=== PATIENT | male | born 1940 | race Caucasian/White ===

== ENCOUNTER 2018-03-05 04:33 | Inpatient (IN) | payer MEDICARE ==
[~2018-03-05] VITALS: Ht 152.4 cm; Wt 87.0 kg
[2018-03-05] VITALS (10 sets, daily range): BP systolic 99–121; BP diastolic 49–59
[~2018-03-05 04:33] MED LIST: ADVAIR DISK2 IN; ANTIVERT50 MG PO; B-122500 MCG PO; CETIRIZINE10 MG PO; CO Q-10300 MG PO; ENDUR-ACIN500 MG PO; FISH OIL1200 M1 PO; FOLIC ACID1 MG PO; LASIX 40 MG40 MG/TAB PO; LIPITOR10 MG PO; LOPRESSOR25 MG PO; LORTAB 5/3255 MG PO; OMEPRAZOLE20 MG PO; QUINAPRIL10 MG PO; RANITIDINE150 M1 PO; RHEUMATREX2.5 M1 PO; VITAMIN C500 M1 PO; VITAMIN D32000 UNIT PO; VITAMIN E400 UNIT PO; ZINC50 M1 PO; [UNRECOGNIZED DRUG - OTHER] PO
[2018-03-05 05:27] LABS: HEMATOCRIT 32.3 % (39.0-50.0); HEMOGLOBIN 10.8 g/dl (14.0-18.0); IMMATURE GRANULOCYTES 1.1 % (0.0-1.0); MEAN CORPUSCULAR HGB 34.1 pG CALC (26.0-32.0); MEAN CORPUSCULAR HGB CONC 33.4 g/L CALC (32.0-36.0); NEUT# 14.35 thou/uL (1.82-7.42); RED BLOOD COUNT 3.17 mill/uL (4.70-6.10); RED CELL DISTRI WIDTH 14.9 % (11.5-15.5)
[2018-03-05 05:28] LABS: MEAN CELL VOLUME 101.9 fL CALC (80.0-100.0)
[2018-03-05 05:39] LABS: ALBUMIN 3.6 g/dL (3.2-5.0); BILIRUBIN, TOTAL 0.4 mg/dL (0.0-1.4); CREATININE 1.7 mg/dL (0.7-1.3); POTASSIUM 4.6 mmol/l (3.5-5.1); TOTAL PROTEIN 6.2 g/dL (6.3-8.2)
[2018-03-05 06:11] LABS: INTERNATIONAL NORMALIZED RATIO 1.4 RATIO (0.7-1.3); PROTHROMBIN TIME 16.2 SECONDS (9.0-12.5)
[2018-03-05 06:12] LABS: ACT PARTIAL THROMBO TIME 41.3 SECONDS (20.0-32.5)
[2018-03-05] MEDS ORDERED: MECLIZINE25 MG PO (06:53)
[2018-03-05] MEDS ORDERED: METAMUCIL0.52 G1 PO (06:55)
[2018-03-05] MEDS ORDERED: K-DUR/KLOR-CON20 MEQ PO (06:57)
[2018-03-05] MEDS ORDERED: XARELTO10 MG PO (06:58)
[2018-03-05] MEDS ORDERED: AMIODARONE200 MG PO (06:59)
[2018-03-05] MEDS ORDERED: LEVOTHYROXIN75 MCG PO (07:00)
[2018-03-05] MEDS ORDERED: SPIRONOLACTONE25 MG PO (07:01)
[2018-03-05 12:09] LABS: URINE BILIRUBIN - DIPSTICK NEGATIVE (NEGATIVE); URINE BLOOD DIPSTICK NEGATIVE (NEGATIVE); URINE COLOR YELLOW; URINE GLUCOSE - DIPSTICK NEGATIVE (NEGATIVE); URINE KETONE NEGATIVE (NEGATIVE); URINE LEUK ESTERASE NEGATIVE (Negative); URINE NITRITE - DIPSTICK NEGATIVE (Negative); URINE PH 5.5 (4.5-8.0); URINE PROTEIN - DIPSTICK NEGATIVE (NEG-TRACE); URINE SPECIFIC GRAVITY 1.025; URINE UROBILINOGEN - DIPSTICK 0.2 E.U./dL (0.2)
[2018-03-05] MEDS ORDERED: ADLT ASA LOW81 MG PO (12:39)
[2018-03-05 12:55] LABS: URINE CLARITY CLEAR
== END 2018-03-05 12:38 | DRG 280 ==
LOC: ED 04:33 → ED-I 05:30 → ED 06:50 → MS2 06:51 → ICU 07:20
PROVIDERS: Emergency Medicine; ADMIT Internal Medicine; ATTEND Internal Medicine
DX: I21.4 Non-ST elevation (NSTEMI) myocardial infarction (principal); J18.9 Pneumonia, unspecified organism; J96.10 Chronic respiratory failure, unspecified whether with hypoxia or hypercapnia; I13.0 Hypertensive heart and chronic kidney disease with heart failure and stage 1 through stage 4 chronic kidney disease, or unspecified chronic kidney disease; N17.9 Acute kidney failure, unspecified; I50.22 Chronic systolic (congestive) heart failure; I48.2 Chronic atrial fibrillation; J44.0 Chronic obstructive pulmonary disease with (acute) lower respiratory infection; J44.1 Chronic obstructive pulmonary disease with (acute) exacerbation; N18.3 Chronic kidney disease, stage 3 (moderate); Z99.81 Dependence on supplemental oxygen; I25.10 Atherosclerotic heart disease of native coronary artery without angina pectoris; I25.5 Ischemic cardiomyopathy; E03.9 Hypothyroidism, unspecified; E66.9 Obesity, unspecified; G47.33 Obstructive sleep apnea (adult) (pediatric); D63.8 Anemia in other chronic diseases classified elsewhere; I25.2 Old myocardial infarction; Z95.810 Presence of automatic (implantable) cardiac defibrillator; Z95.5 Presence of coronary angioplasty implant and graft; Z79.01 Long term (current) use of anticoagulants; Z87.891 Personal history of nicotine dependence; Z87.01 Personal history of pneumonia (recurrent)

== ENCOUNTER 2018-04-03 11:43 | Emergency (ER) | payer MEDICARE ==
[~2018-04-03] VITALS: Ht 174 cm; Wt 86.0 kg
[~2018-04-03 11:43] MED LIST changes: +ADLT ASA LOW81 MG PO; +AMIODARONE200 MG PO; +K-DUR/KLOR-CON20 MEQ PO; +LEVOTHYROXIN75 MCG PO; +MECLIZINE25 MG PO; +METAMUCIL0.52 G1 PO; +SPIRONOLACTONE25 MG PO; +XARELTO10 MG PO
[2018-04-03 12:29] LABS: HEMATOCRIT 29.5 % (39.0-50.0); HEMOGLOBIN 9.5 g/dl (14.0-18.0); IMMATURE GRANULOCYTES 0.7 % (0.0-1.0); MEAN CELL VOLUME 102.4 fL CALC (80.0-100.0); MEAN CORPUSCULAR HGB CONC 32.2 g/L CALC (32.0-36.0); NEUT# 4.79 thou/uL (1.82-7.42); RED BLOOD COUNT 2.88 mill/uL (4.70-6.10); RED CELL DISTRI WIDTH 14.9 % (11.5-15.5)
[2018-04-03 12:39] LABS: ANION GAP 11 (6-22 (CALC)); BUN 16 mg/dL (8-23); BUN/CREATININE RATIO 12 (12-20 (CALC)); CARBON DIOXIDE 29 mmol/l (22-30); CHLORIDE 102 mmol/l (95-108); CREATININE 1.3 mg/dL (0.7-1.3); GFR 54 ML/MIN (>=60 (CALC)); GFR FOR AFR.AMER. > 60 ML/MIN (>=60 (CALC)); SODIUM 139 mmol/l (137-146)
[2018-04-03 12:40] LABS: POTASSIUM 3.4 mmol/l (3.5-5.1)
[2018-04-03 13:24] LABS: INTERNATIONAL NORMALIZED RATIO 1.5 RATIO (0.7-1.3); PROTHROMBIN TIME 16.7 SECONDS (9.0-12.5)
[2018-04-03] MEDS ORDERED: [UNRECOGNIZED DRUG - OTHER] PO (14:13)
[2018-04-03 15:36] VITALS: BP 115/58
== END 2018-04-03 15:36 | disposition short-term general hospital (02) ==
LOC: ED 11:43
PROVIDERS: Family Medicine
DX: I47.2 Ventricular tachycardia (principal); I25.10 Atherosclerotic heart disease of native coronary artery without angina pectoris; I11.0 Hypertensive heart disease with heart failure; I50.9 Heart failure, unspecified; I48.91 Unspecified atrial fibrillation; E03.9 Hypothyroidism, unspecified; J44.9 Chronic obstructive pulmonary disease, unspecified; Z95.1 Presence of aortocoronary bypass graft; Z95.5 Presence of coronary angioplasty implant and graft; Z95.810 Presence of automatic (implantable) cardiac defibrillator
CPT/HCPCS: J0282

== ENCOUNTER 2018-10-21 13:12 | Inpatient (IN) | payer MEDICARE ==
[~2018-10-21] VITALS: Ht 172.7 cm; Wt 84.6 kg
[~2018-10-21 13:12] MED LIST changes: +[UNRECOGNIZED DRUG - OTHER] PO
[2018-10-21 16:02] VITALS: BP 112/67
--- NOTE | 2018-10-21 16:05 | NUR ---
[place] [facility] [place] VOLUNTEER @1600. PT AMBULATED FROM TO BED W/ STEADY GAIT. VS DONE. ASSESSMENT COMPLETE. PT A/O X3. SPEECH IS CLEAR. PRODUCTIVE COUGH NOTED. PT HAS A PACEMAKER. RESP EVEN AND UNLABORED. LUNG SOUNDS COARSE. O2@3L ON PT. PT HAS EXERTIONAL SOB. STRONG RADIAL AND PEDAL PULSES. BOWEL SOUNDS ACTIVE X4. PT DENIES ANY PAIN OR NEEDS. CALL LIGHT IN REACH. WILL CONTINUE TO MONITOR.
[2018-10-21 18:47] LABS: HEMATOCRIT 27.6 % (39.0-50.0); HEMOGLOBIN 8.4 g/dl (14.0-18.0); IMMATURE GRANULOCYTES 0.6 % (0.0-5.0); MEAN CORPUSCULAR HGB 28.5 pG CALC (26.0-32.0); MEAN CORPUSCULAR HGB CONC 30.4 g/L CALC (32.0-36.0); NEUT# 10.35 thou/uL (1.82-7.42); RED BLOOD COUNT 2.95 mill/uL (4.70-6.10); RED CELL DISTRI WIDTH 20.5 % (11.5-15.5)
[2018-10-21 18:49] LABS: MEAN CELL VOLUME 93.6 fL CALC (80.0-100.0)
--- NOTE | 2018-10-21 18:50 | NUR ---
NEW IV START BY TAYA GRAY. #22 LW SL. FLUSHED AND PATENT. SITE HEALTHY.
[2018-10-21 18:59] LABS: ALBUMIN 3.7 g/dL (3.2-5.0); BILIRUBIN, TOTAL 1.5 mg/dL (0.0-1.4); CREATININE 1.6 mg/dL (0.7-1.3); TOTAL PROTEIN 6.2 g/dL (6.3-8.2)
[2018-10-21 19:11] LABS: POTASSIUM 4.4 mmol/l (3.5-5.1)
[2018-10-21 19:40] VITALS: BP 116/55
--- NOTE | 2018-10-21 21:05 | NUR ---
PT MEDICATED ORDERS PROVIDE, LUNG SOUNDS ARE DIMINIISHED, ABD DIST/SOFT/NON-TENDER, PT REPORTS STOOL TODAY TO BE NORMAL, DENIES DIFFICULTY URINATING. NO NOTED EDEMA, SKIN AND NEURO'S ARE INTACT. PT ENCOURAGED TO CALL IF ANY NEEDS ARISE.
--- NOTE | 2018-10-21 22:45 | NUR ---
PT ASSISTED IN SETTING UP CPAP MACHINE. PT LEFT W/CPAP ON AND LIGHTS OFF. DENIES ANY OTHER NEEDS AT THIS TIME. CALL LIGHT AT SIDE.
[2018-10-22 00:25] VITALS: BP 122/66
--- NOTE | 2018-10-22 02:40 | NUR ---
PT APPEARS TO BE SLEEPING AT THIS TIME. NO S/O DISTRESS NOTED, CALL LIGHT AT BEDSIDE. CPAP ON.
[2018-10-22 04:30] VITALS: BP 109/54
[2018-10-22 06:01] LABS: HEMATOCRIT 25.9 % (39.0-50.0); HEMOGLOBIN 8.1 g/dl (14.0-18.0); IMMATURE GRANULOCYTES 0.7 % (0.0-5.0); MEAN CELL VOLUME 93.2 fL CALC (80.0-100.0); MEAN CORPUSCULAR HGB 29.1 pG CALC (26.0-32.0); MEAN CORPUSCULAR HGB CONC 31.3 g/L CALC (32.0-36.0); NEUT# 7.13 thou/uL (1.82-7.42); RED BLOOD COUNT 2.78 mill/uL (4.70-6.10); RED CELL DISTRI WIDTH 20.1 % (11.5-15.5)
--- NOTE | 2018-10-22 06:05 | NUR ---
PT MEDICATED ORDERS PROVIDE. NO S/O DISTRESS NOTED. PT WAS AWAKE STATING HE DIDN'T SLEEP VERY WELL. CPAP ON AND CALL LIGHT IN HAND, LIGHTS AND TV ON.
[2018-10-22 06:12] LABS: ALBUMIN 3.4 g/dL (3.2-5.0); BILIRUBIN, TOTAL 1.4 mg/dL (0.0-1.4); CREATININE 1.5 mg/dL (0.7-1.3); MAGNESIUM 2.4 mg/dL (1.6-2.3); POTASSIUM 4.8 mmol/l (3.5-5.1); TOTAL PROTEIN 5.7 g/dL (6.3-8.2)
[2018-10-22 08:02] VITALS: BP 100/47
--- NOTE | 2018-10-22 08:03 | NUR ---
PT LAYING IN BED AWAKE, WATCHING TV; A/O X3; RESP EVEN AND UNLABORED, 02@3L NC; PULSES STRONG; PACED 60 ON MONITOR; ABD SOFT AND DISTENDED; LAST BM 10/22; PRODUCTIVE COUGH NOTED; LUNGS SOUND WHEEZING; NO EDEMA NOTED; #22LW, FLUSHED FLREELY; NO EDEMA OR REDNESS NOTED TO SITE; DENIES PAIN; CALL JON AND URINAL IN REACH; SAFETY PRECAUTION REINFORCE;
--- NOTE | 2018-10-22 08:24 | NUR ---
I SPOKE WITH LESLIE FROM DR. CARA YIN OFFICE @2550. DR. KUHN WAS CONSULTED AND CAME TO THE FLOOR @6014. #[phone]
[2018-10-22 11:19] VITALS: BP 112/59
[2018-10-22] MEDS ORDERED: METAMUCIL0.52 G1 PO (11:36)
[2018-10-22] MEDS ORDERED: D 50005000 UNIT PO (11:38)
[2018-10-22] MEDS ORDERED: SG ASA LOW81 M1 PO (11:40)
[2018-10-22] MEDS ORDERED: KLOR-CON M2020 MEQ PO (11:41)
[2018-10-22] MEDS ORDERED: METOLAZONE5 MG PO (11:45)
[2018-10-22] MEDS ORDERED: MIDODRINE10 MG PO (11:47)
[2018-10-22] MEDS ORDERED: MIRALAX3350 NF PO (11:49)
[2018-10-22] MEDS ORDERED: VENTOLIN HFA PO (11:51)
--- NOTE | 2018-10-22 11:52 | NUR ---
PT SITTING UP IN BED WATCHING TV WITH HIS ; RESP EVEN AND UNLABORED; [address]; PT QUESTION HIS HOME MED, WILL TALK TO BONG JONES; PT COMPLAIN OF NO PAIN; MEDICATED PER EMAR; CALL JON IN REACH; WILL CONTINUE TO MONITOR.
--- NOTE | 2018-10-22 14:15 | NUR ---
PT GOING DOWN FOR CT VIA W/C ACCOMPANIED BY A VOLUNTEER; 02@3L NC; VINCENT PASS
--- NOTE | 2018-10-22 14:35 | NUR ---
PT RETURN FROM CT VIA W/C ACCOMPANIED BY A VOLUNTEER; O2@3L NC; RESP EVEN AND UNLABORED; LINEN CHANGE DONE; COMPANY AT BEDSIDE; CALL JON AND URINAL IN REACH.
[2018-10-22 15:15] VITALS: BP 108/49
--- NOTE | 2018-10-22 15:17 | NUR ---
THE WOUND VAC WAS CANCELLED AT 1430. WE ARE GOING TO USE WOUND VAC #[id number]. THE WOUND VAC #[id number] WAS CANCELLED.
--- NOTE | 2018-10-22 16:21 | NUR ---
PT LAYING IN BED WITH HOB ELEVATED,, WATCHING TV; PT WORKING ON HIS PHONE; [address]; PRODUCTIVE COUGH NOTED; THICK WHITE SPUTUM; IV SITE REMAINS HEALTHY, FREE OF EDEMA; PT AMB IN ROOM AND TO THE RESTROOM. SAFETY PRECAUTION IN PLACE; CALL JON IN REACH.
--- NOTE | 2018-10-22 19:00 | NUR ---
PT IS IN HIGH FOWLERS POSITION IN BED, NO S/O DISTRESS, PT DENIES ANY NEEDS, BEDSIDE REPORT RECEIVED FROM DAY NURSE. CALL LIGHT AT SIDE.
[2018-10-22 19:06] VITALS: BP 113/57
--- NOTE | 2018-10-22 20:24 | NUR ---
PT ASSESSED, LUNG SOUNDS ARE CLEAR/DIMINISHED, ABD DISTENDED SOFT/NON-TENDER, SKIN INTACT, NO NOTED EDEMA, LOCX4, DENIES SOB EXCEPT ON EXERTION/N/V OR CHEST PAIN. PT MEDICATED ORDERS PROVIDE. CALL LIGHT IN HAND.
--- NOTE | 2018-10-23 00:01 | NUR ---
pt medicated as orders provide. pt provided fresh ice water. denies any other needs. call light in hand, pt watching tv w/lights on low.
[2018-10-23 00:13] VITALS: BP 121/52
--- NOTE | 2018-10-23 02:49 | NUR ---
pt called to report that he felt like he was having difficult getting enough oxygen. o2 sats 99% on 02nc @3L. respiratory called and pt assisted in repositioning for optimum breathing. respiratory in w/pt at this time. pt denies chest pain, no s/o labored breathing or distress.
--- NOTE | 2018-10-23 03:05 | NUR ---
RESPIRATORY TREATMENT COMPLETED, PT REPORTS FEELING RELIEF. CALL LIGHT IS AT SIDE AND PT ENCOURAGED TO CALL IF HE HAS ANY FURTHER DIFFICULTY OR OTHER NEEDS ARISE. NO S/O DISTRESS AT THIS TIME.
[2018-10-23 04:15] VITALS: BP 127/61
--- NOTE | 2018-10-23 04:25 | NUR ---
pt was sleeping soundly when we entered the room, awoke to our voices. v/s assessed, pt denies any other needs.
--- NOTE | 2018-10-23 05:52 | NUR ---
PT MEDICATED ORDERS PROVIDE W/IV ANTIOBITIC THERAPY AND EARLY AM MEDS. PT REPORTS FEELING SLIGHTLY BETTER THAN OVERNIGHT, REPORTED COUGHING UP SPUTUM/VISUALIZED IN CUP APPEARING WHITE AND THICK SPUTUM. PT DENIES ANY OTHER NEEDS.
--- NOTE | 2018-10-23 07:00 | NUR ---
PT REPORT RECIEVED FROM TAYA HERNANDEZ. PT SITTING IN BED WATCHING TELEVISION. NO S/S OF DISTRESS. CALL LIGHT IN REACH. WILL CONTINUE TO MONITOR.
[2018-10-23 07:05] LABS: HEMATOCRIT 27.1 % (39.0-50.0); HEMOGLOBIN 8.3 g/dl (14.0-18.0); IMMATURE GRANULOCYTES 0.7 % (0.0-5.0); MEAN CELL VOLUME 94.1 fL CALC (80.0-100.0); MEAN CORPUSCULAR HGB 28.8 pG CALC (26.0-32.0); MEAN CORPUSCULAR HGB CONC 30.6 g/L CALC (32.0-36.0); NEUT# 13.92 thou/uL (1.82-7.42); RED BLOOD COUNT 2.88 mill/uL (4.70-6.10); RED CELL DISTRI WIDTH 20.5 % (11.5-15.5)
[2018-10-23 07:35] VITALS: BP 112/53
--- NOTE | 2018-10-23 07:35 | NUR ---
PT A/OX3. SPEECH IS CLEAR. RESP EVEN AND UNLABORED. WHEEZING NOTED THROUGHOUT LUNG [place]. PT HAS SOME SOB AT THIS TIME. PT C/O CHEST CONGESTION. PRODUCTIVE COUGH NOTED; WHITE THICK SPUTUM. PRN BREATHING TREATMENT DONE. O2 @3L ON PT. TELE IN PLACE. BOWEL SOUNDS ACTIVE X4. STRONG RADIAL AND PEDAL PULSES. #22 LW SL. PT DOES C/O SLIGHT PAIN, SLIGHT REDNESS NOTED AROUND IV SITE WELL. WILL MONITOR. SKIN INTACT. PT DENIES ANY FURTHER PAIN OR NEEDS. POC DISCUSSED. SAFETY PRECAUTIONS IN PLACE. CALL LIGHT IN REACH. WILL CONTINUE TO MONITOR.
[2018-10-23 07:37] LABS: ALBUMIN 3.6 g/dL (3.2-5.0); BILIRUBIN, TOTAL 0.7 mg/dL (0.0-1.4); CREATININE 1.8 mg/dL (0.7-1.3); MAGNESIUM 2.5 mg/dL (1.6-2.3); POTASSIUM 4.6 mmol/l (3.5-5.1)
--- NOTE | 2018-10-23 09:24 | NUR ---
pt c/o pain at iv site; #22 lw. iv removed. catheter intact.
--- NOTE | 2018-10-23 10:35 | NUR ---
NEW IV START BY JO ANN MELGAR. #22 RFA. FLUSHED AND PATENT. SITE APPEARS HEALTHY. PT DENIES ANY PAIN AT IV SITE
--- NOTE | 2018-10-23 11:03 | NUR ---
PT WATCHING TELEVISION IN BED. NO C/O PAIN OR NEEDS. O2@3L ON PT. HOB ELEVATED. URINAL AT BEDSIDE. CALL LIGHT IN REACH. WILL CONTINUE TO MONITOR.
[2018-10-23 11:16] VITALS: BP 118/47
--- NOTE | 2018-10-23 11:44 | NUR ---
BONG SALVADOR IN TO SEE PT
[2018-10-23 12:38] LABS: URINE BILIRUBIN - DIPSTICK NEGATIVE (NEGATIVE); URINE BLOOD DIPSTICK NEGATIVE (NEGATIVE); URINE COLOR YELLOW; URINE GLUCOSE - DIPSTICK NEGATIVE (NEGATIVE); URINE KETONE NEGATIVE (NEGATIVE); URINE LEUK ESTERASE NEGATIVE (NEGATIVE); URINE NITRITE - DIPSTICK NEGATIVE (Negative); URINE PROTEIN - DIPSTICK NEGATIVE (NEG-TRACE); URINE UROBILINOGEN - DIPSTICK 0.2 E.U./dL (0.2)
[2018-10-23 15:05] VITALS: BP 110/53
--- NOTE | 2018-10-23 16:13 | NUR ---
PT WATCHING TELEVISION. RESP EVEN AND UNLABORED. O2@3L ON PT. NO C/O PAIN OR NEEDS. IV FLUIDS INFUSING. CALL LIGHT IN REACH. WILL CONTINUE TO MONITOR.
[2018-10-23 19:10] VITALS: BP 115/56
--- NOTE | 2018-10-23 20:27 | NUR ---
PT MEDICATED ORDERS PROVIDE AND PT ASSESSED AT THIS TIME. ARRIVED BACK AT BEDSIDE WHILE I WAS IN THE ROOM. LUNG SOUNDS ARE MILD WHEEZING THROUGHOUT, LOCX4, POC DISCUSSED, ABD DIS/SOFT/NON-TENDER W/ACTIVE BOWEL SOUNDS, REPORTS BM YESTERDAY, IV FLUIDS ARE RUNNING @100 ORDERED/PT AND VOICE CONCERNS REGARDING FLUIDS BEING ADMINISTERED REPORTING HE HAS HAD FLUID BUILD-UP IN THE PAST ON HIS LUNGS AND HAD TO HAVE FLUIDS REMOVED. LABS REVIEWED W/PT AND POC DISCUSSED. WILL CONTINUE TO MONITOR CLOSELY.
--- NOTE | 2018-10-23 23:51 | NUR ---
V/S ASSESSED AND WEIGHT OBTAINED VIA STANDING SCALE. LUNG SOUNDS ARE MILD WHEEZE THROUGHOUT, PT VOICED CONCERNS REGARDING IV FLUIDS AND AGAIN WANTED TO DISCUSS POC AND LABS/PT EDUCATED REGARDING LABS AVAILABLE AND POC. PT REQUESTED THAT IV FLUIDS BE TURNED DOWN/NS RUNNING @10 AT THIS TIME. NO APPARENT DISTRESS AT THIS TIME, 02 SATS ARE 92% ON 02 3L/CPAP. RESPIRATIONS ARE AT 20/SHALLOW/NON-LABORED AT THIS TIME. PT TOLERATED STANDING TO SCALE AND BACK TO BED WELL W/OUT SOB. WILL CONTIUE TO MONITOR.
[2018-10-24] VITALS (7 sets, daily range): BP systolic 111–142; BP diastolic 52–84
--- NOTE | 2018-10-24 01:15 | NUR ---
PT CALLED TO REPORT HEART MONITOR IS BLINKING/ED REPORTS PT IS PACED 62 AT THIS TIME ON PIPE ORGAN TUNER AND REPAIRER. BATTERIES REPLACED PREVENTATIVE.
--- NOTE | 2018-10-24 04:00 | NUR ---
V/S ASSESSED, PT REPORTS SOME EDEMA TO LEFT ARM/VISUALIZED. ARM ELEVATED ON PILLOW.
[2018-10-24 05:33] LABS: HEMATOCRIT 25.2 % (39.0-50.0); HEMOGLOBIN 7.7 g/dl (14.0-18.0); IMMATURE GRANULOCYTES 1.1 % (0.0-5.0); MEAN CELL VOLUME 94.4 fL CALC (80.0-100.0); MEAN CORPUSCULAR HGB 28.8 pG CALC (26.0-32.0); MEAN CORPUSCULAR HGB CONC 30.6 g/L CALC (32.0-36.0); NEUT# 10.57 thou/uL (1.82-7.42); RED BLOOD COUNT 2.67 mill/uL (4.70-6.10); RED CELL DISTRI WIDTH 21.2 % (11.5-15.5)
[2018-10-24 05:46] LABS: CREATININE 1.7 mg/dL (0.7-1.3); MAGNESIUM 2.4 mg/dL (1.6-2.3); POTASSIUM 4.5 mmol/l (3.5-5.1)
--- NOTE | 2018-10-24 08:20 | NUR ---
PT IS SITTING IN THE SIDE OF THE BED. ASESSMENT DONE. TELE IN PLACE. PT IS A&OX3. PT DENIES PAIN AT THIS TIME. PER PT REQUEST NS INFUSING AT KVO. PT DENIES NEEDS AT THIS TIME. SAFETY PRECAUTIONS REINFORCED AND CALL LIGHT IN REACH.
--- NOTE | 2018-10-24 11:10 | NUR ---
PT IS RESTING IN BED WITH NO S/S OF DISTRESS NOTED. IN ROOM AND CALL LIGHT IN REACH. NOTIFIED BONG SALVADOR PER PT REQUEST INFUSION IS KVO. NO NEW ORDERS RECEIVED AT THIS TIME.
--- NOTE | 2018-10-24 15:54 | NUR ---
PT IS RESTING IN BED AND DENIES NEEDS AT THIS TIME. CALL LIGHT IN REACH.
--- NOTE | 2018-10-24 19:15 | NUR ---
PT IS UPRIGHT IN BED W/LIGHTS ON WATCHING TV. IV ANTIBIOTIC THERAPY IS JUST COMPLETED. PT DENIES SOB WHEN SITTING OR LAYING UPRIGHT, BUT REPORTS SOB W/ANY EXERTION. 02NC IS ON, REPIRATIONS ARE EVEN AND NON-LABORED. WILL CONTINUE TO MONITOR
--- NOTE | 2018-10-24 20:35 | NUR ---
PT MEDICATED ORDERS PROVIDE. LUNG SOUNDS ARE WHEEZY THROUGHOUT, RESPIRATIONS ARE SHALLOW AND SLIGHTLY LABORED. PT REPORTS FEELING OKAY WHILE BEING STILL, BUT SOB UPON EXERTION. O2 IS ON NC @3L, ACTIVE BOWEL SOUNDS, BM REPORTED TODAY X2 NORMAL, NO DIFFICULTIES URINATING/USING URINAL. PT ASSISTED IN PUTTING ON NEW SOCKS AND ICE WATER REFRESHED/DENIES ANY OTHER DRINK OR SNACK AT THIS TIME. POC DISCUSSED W/PT, HE STATES THAT HE DOES NOT WANT THE CHEST PERCUSSIONS, PT EDUCATED ON THE PURPOSE/EFFECT, HE REPORTS THAT HE HAS HAD THEM BEFORE AND DOES NOT WANT THEM. RESPIRATORY WILL BE NOTIFIED, PT ENCOURAGED TO ALERT ME IF HE CHANGES HIS MIND/WILL MONITOR FOR NEED. MEDICATIONS DISCUSSED AND PT LEFT UPRIGHT IN BED WATCHING SkemAME W/CALL LIGHT IN HAND.
[2018-10-25 00:14] VITALS: BP 121/69
--- NOTE | 2018-10-25 02:38 | NUR ---
PT APPEARS TO BE SLEEPING AT THIS TIME, CPAP IS ON. NO S/O DISTRESS.
[2018-10-25 04:50] VITALS: BP 120/55
--- NOTE | 2018-10-25 06:50 | NUR ---
REPORT RECEIVED FROM TAYA HERNANDEZ; PT LAYING IN BED WITH HOB ELEVATED; RESP EVEN AND UNLABORED; CALL JON IN REACH;
[2018-10-25 09:25] VITALS: BP 112/53
--- NOTE | 2018-10-25 09:34 | NUR ---
MEDICATED PER EMAR; 02@3L NC IN PLACE; RESP EVEN AND UNLABORED; PRODUCTIVE COUGH, THICK LIGHT BROWN SPUTUM; PULSES STRONG; ACTIVE BOWEL SOUND, ABD SOFT DISTENDED, NON TENDER; TEL IN PLACE, PACED 60 ON MONITOR; LEFT ARM APPEARS SWOLLEN, PT STATES IT'S NOTING NEW; IVF RUNNING AT KVO 10CC/HR; SITE APPEARS HEALTHY; DENIES ANY PAIN; URINAL AND CALL JON IN REACH. NO DISTRESS NOTED; SAFETY PRECAUTION REINFORCED;
--- NOTE | 2018-10-25 09:40 | NUR ---
PT REFUSING CHEST PERCUSSION
[2018-10-25 11:15] VITALS: BP 128/61
--- NOTE | 2018-10-25 11:19 | NUR ---
REMAIN SITTING UP IN BED HOB ELEVATED, WATCHING TV; AT BEDSIDE; 02@3L NC IN PLACE; IVF RUNNING @ KVO 10CC/HR; CALL JON IN REACH; VOICE NO CONCERNS;
--- NOTE | 2018-10-25 12:26 | NUR ---
DR MENDOZA AT BEDSIDE TO DISCUSS POC; AT BEDSIDE;
[2018-10-25 15:20] VITALS: BP 117/54
[2018-10-25 15:31] LABS: HEMATOCRIT 25.3 % (39.0-50.0); HEMOGLOBIN 7.9 g/dl (14.0-18.0); IMMATURE GRANULOCYTES 0.9 % (0.0-5.0); MEAN CELL VOLUME 94.4 fL CALC (80.0-100.0); MEAN CORPUSCULAR HGB 29.5 pG CALC (26.0-32.0); MEAN CORPUSCULAR HGB CONC 31.2 g/L CALC (32.0-36.0); NEUT# 13.6 thou/uL (1.82-7.42); RED BLOOD COUNT 2.68 mill/uL (4.70-6.10); RED CELL DISTRI WIDTH 21.1 % (11.5-15.5)
--- NOTE | 2018-10-25 16:21 | NUR ---
PT SITTING UP IN BED WITH HOB ELEVATED; [address]; RESP EVEN AND UNLABORED; DENIES ANY NEEDS; CALL JON IN REACH;
--- NOTE | 2018-10-25 16:40 | NUR ---
PT WENT DOWN FOR AN XRAY VIA W/C, 02@3L NC; MELISA ARCE, ACCOMPANIED BY STEVE BISWAS
[2018-10-25 19:00] VITALS: BP 114/64
--- NOTE | 2018-10-25 19:21 | NUR ---
PT. IS SITTING UP IN BED WITH NO DISTRESS NOTED; O2 INFUSING PER NC PER ORDER; ASSESSMENT COMPLETED; IV SITE PATENT AND IVF INFUSING @KVO WITHOUT DIFFICULTIES; IS IN AT BEDSIDE; CALL LIGHT IS IN REACH; WILL CONTINUE TO MONITOR.
--- NOTE | 2018-10-25 20:44 | NUR ---
NO DISTRESS NOTED; DENIES NEEDS/PAIN; SCHED MEDS GIVEN; CALL LIGHT IS IN REACH; WILL CONTINUE TO MONITOR.
--- NOTE | 2018-10-25 23:17 | NUR ---
NOTIFIED DR. MIGUEL OF PT HAVING BLOOD IN URINE ALONG WITH CLOTS NOTED. ALSO NOTIFIED HIM THAT PT. DECLINED EVER HAVING BLOOD IN URINE PREVIOUSLY IN LIFETIME PRIOR TO TODAY AND THAT PT. IS ON XARELTO FOR HX OF AFIB, AND ALSO THAT PT. REPORTS MILD DISCOMFORT WHEN VOIDING; NEW ORDERS TO OBTAIN UA; WILL CARRY OUT ORDER.
[2018-10-26] VITALS (7 sets, daily range): BP systolic 113–143; BP diastolic 50–62
[2018-10-26 02:41] LABS: URINE BILIRUBIN - DIPSTICK NEGATIVE (NEGATIVE); URINE BLOOD DIPSTICK LARGE (NEGATIVE); URINE COLOR BROWN; URINE GLUCOSE - DIPSTICK NEGATIVE (NEGATIVE); URINE KETONE NEGATIVE (NEGATIVE); URINE LEUK ESTERASE NEGATIVE (NEGATIVE); URINE NITRITE - DIPSTICK NEGATIVE (Negative); URINE PH 5.5 (4.5-8.0); URINE PROTEIN - DIPSTICK 30 mg/dL (NEG-TRACE); URINE SPECIFIC GRAVITY 1.015; URINE UROBILINOGEN - DIPSTICK 0.2 E.U./dL (0.2)
[2018-10-26 02:46] LABS: URINE RBC 50-100 RBC/hpf (0-5); URINE SQUAMOUS EPITHELIAL CELL FEW EPI/hpf (0-FEW)
--- NOTE | 2018-10-26 03:40 | NUR ---
PT. SITTING UP IN BED WITH NO DISTRESS NOTED; DENIES NEEDS/PAIN; ENCOURAGED TO CALL FOR ANY NEEDS; CALL LIGHT IS IN REACH; WILL CONTINUE TO MONITOR.
[2018-10-26 05:56] LABS: HEMATOCRIT 27.5 % (39.0-50.0); HEMOGLOBIN 8.3 g/dl (14.0-18.0); IMMATURE GRANULOCYTES 1.1 % (0.0-5.0); MEAN CELL VOLUME 94.5 fL CALC (80.0-100.0); MEAN CORPUSCULAR HGB 28.5 pG CALC (26.0-32.0); MEAN CORPUSCULAR HGB CONC 30.2 g/L CALC (32.0-36.0); NEUT# 17.29 thou/uL (1.82-7.42); RED BLOOD COUNT 2.91 mill/uL (4.70-6.10); RED CELL DISTRI WIDTH 21.1 % (11.5-15.5)
[2018-10-26 06:26] LABS: ALBUMIN 3.6 g/dL (3.2-5.0); BILIRUBIN, TOTAL 1.1 mg/dL (0.0-1.4); CREATININE 1.8 mg/dL (0.7-1.3); MAGNESIUM 2.6 mg/dL (1.6-2.3); TOTAL PROTEIN 5.9 g/dL (6.3-8.2)
--- NOTE | 2018-10-26 07:00 | NUR ---
PT REPORT RECIEVED FROM TAYA VAZQUEZ. PT SLEEPING, NO S/S OF DISTRESS. CALL LIGHT IN REACH
--- NOTE | 2018-10-26 07:31 | NUR ---
PT A/O X3. SPEECH IS CLEAR. PRODUCTIVE COUGH NOTED. RESP EVEN AND UNLABORED. LUNG SOUNDS COARSE. O2@3L. ENCOURAGED AMBULATION. PT HAS A PACEMAKER. BOWEL SOUNDS ACTIVE X4. STRONG RADIAL AND PEDAL PULSES. #22 RFA @KVO. SITE HEALTHY. +1 PITTING EDEMA TO LT ARM NOTED. ELEVATED ON 2 PILLOWS. SKIN INTACT. PT DENIES ANY PAIN OR NEEDS. POC DISCUSSED. SAFETY PRECAUTIONS IN PLACE. CALL LIGHT IN REACH. WILL CONTINUE TO MONITOR.
--- NOTE | 2018-10-26 12:09 | NUR ---
PT IN BED EATING LUNCH. NO C/O PAIN OR NEEDS. TELE IN PLACE. O2@3L ON PT. CALL LIGHT IN REACH. WILL CONTINUE TO MONITOR
--- NOTE | 2018-10-26 14:45 | NUR ---
PT TRANSPORTED TO CT VIA WHEELCHAIR ACCOMPIANED BY VOLUNTEER
--- NOTE | 2018-10-26 16:12 | NUR ---
pt refused to have CT done stating he was having to much SOB. pt transported back to [facility] via wheelchair
--- NOTE | 2018-10-26 20:12 | NUR ---
PT. SITTING UP IN BED WITH NO DISTRESS NOTED; O2 INFUSING PER NC PER ORDER; SCHED MED GIVEN; PT. DENIES NEEDS/PAIN. URINAL IS IN REACH; PT. REPORTING THAT HE STILL IS NOT GOING DOWN FOR CT TONIGHT AND THAT HE MAY GO IN THE AM; WILL ATTEMPT AGAIN IN AM; ASSESSMENT COMPLETED; UPDATED ON POC; ENCOURAGED TO CALL FOR ANY NEEDS; CALL LIGHT IS IN REACH; WILL CONTINUE TO [facility].
--- NOTE | 2018-10-27 00:10 | NUR ---
PT. ASSISTED BACK INTO BED; NO DISTRESS NOTED; SCHED ASIA MIJARES; IV SITE PATENT; DENIES FURTHER NEEDS; CALL LIGHT IS IN REACH; WILL CONTINUE TO MONITOR.
--- NOTE | 2018-10-27 01:20 | NUR ---
PT. SITTING UP IN BED AWAKE; NO DISTRESS NOTED; DENIES NEEDS/PAIN; ENCOURAGED TO CALL FOR ANY NEEDS; CALL LIGHT IS IN REACH.
[2018-10-27 04:11] VITALS: BP 102/54
--- NOTE | 2018-10-27 05:14 | NUR ---
PT. DECLINES AGAIN TO GO DOWN FOR CT; REPORTS HE DOESNT THINK HE WILL LAST THAT LONG LYING DOWN IN CT.
[2018-10-27 05:49] LABS: HEMATOCRIT 27.9 % (39.0-50.0); HEMOGLOBIN 8.4 g/dl (14.0-18.0); IMMATURE GRANULOCYTES 1.2 % (0.0-5.0); MEAN CELL VOLUME 95.5 fL CALC (80.0-100.0); MEAN CORPUSCULAR HGB 28.8 pG CALC (26.0-32.0); MEAN CORPUSCULAR HGB CONC 30.1 g/L CALC (32.0-36.0); NEUT# 18.93 thou/uL (1.82-7.42); RED BLOOD COUNT 2.92 mill/uL (4.70-6.10); RED CELL DISTRI WIDTH 21.2 % (11.5-15.5)
[2018-10-27 06:00] LABS: ALBUMIN 3.5 g/dL (3.2-5.0); BILIRUBIN, TOTAL 1.1 mg/dL (0.0-1.4); CREATININE 1.7 mg/dL (0.7-1.3); MAGNESIUM 2.7 mg/dL (1.6-2.3); POTASSIUM 4.5 mmol/l (3.5-5.1); TOTAL PROTEIN 5.7 g/dL (6.3-8.2)
[2018-10-27 08:20] VITALS: BP 104/57
--- NOTE | 2018-10-27 08:25 | NUR ---
PT IS SITTING IN THE SIDE OF THE BED. ASESSMENT DONE. TELE IN PLACE. PT IS A&O X3. PT DENIES PAIN AT THIS TIME. NS INFUSING WELL AT KVO. O2 AT 3L/M VIA NC. ASKED PT IF HE IS READY FOR HIS CT. PT STATED NO THAT HE STILL AT TIME FEELS SOB. PT STATED HE WILL LET ME KNOW WHEN HIS IS READY. PT DENIES ANY NEEDS AT THIS TIME. SAFETY PRECAUTIONS REINFORCED AND CALL LIGHT IN REACH.
[2018-10-27 11:08] VITALS: BP 123/54
--- NOTE | 2018-10-27 11:48 | NUR ---
PT IS SITTING IN THE SIDE OF THE BED TRYING TO EAT LUNCH. IN ROOM. DR. MENDOZA IN ROOM TO ASESS PT AND DISCUSS POC. TOLD MD THAT PT HAS REFUSED HIS CT TEST DUE TO SOB. PT TOLD MD HE HAD BLOOD IN THE STOOL OR URINE HE WAS UNSURE. NO NEW ORDERS RECEIVED AT THIS TIME. CALL LIGHT IN REACH.
--- NOTE | 2018-10-27 12:20 | NUR ---
CT CALLED. I ASKED PT IF HE IS READY FOR HIS CT TEST. HE STATED NO. THAT HE WILL LET ME KNOW WHEN HE IS READY. IN ROOM AND CALL LIGHT IN REACH.
[2018-10-27 15:20] VITALS: BP 123/56
--- NOTE | 2018-10-27 15:41 | NUR ---
PT IS RESTING IN BED.WITH LEFT ARM ELEVATED IN PILLOW. IN ROOM. CYBER OPS PLANNER NOW IN ROOM FOR TEST. CALL LIGHT IN REACH.
--- NOTE | 2018-10-27 19:00 | NUR ---
REPORT RECEIVED FROM PABLO. PT RESTING IN BED. NO SIGNS OR SYMPTOMS OF DISTRESS AT THIS TIME. SAFETY PRECAUTIONS IN PLACE. WILL CONTINUE TO MONITOR.
[2018-10-27 19:30] VITALS: BP 129/61
--- NOTE | 2018-10-27 20:00 | NUR ---
PT RESTING IN BED. A & O. ASSESSMENT COMPLETED. RESPIRATIONS LABORED ON O2 @ 4L. LUNGS SOUND COURSE THROUGH OUT. PEDAL PULSES WEAK. TRACE EDEMA NOTED BILATERALLY IN LOWER EXTREMITIES. 1+ EDEMA NOTED IN THE LEFT ARM. IV #24 RH, PATENT, APPEARS HEALTHY. TELE MONITOR IN PLACE. PT DENIES ANY NEEDS AT THIS TIME. PT ENCOURAGED TO USE CALL JON IF NEEDS SHOULD ARISE, CALL JON WITHIN REACH. SAFETY PRECATIONS IN PLACE. WILL CONTINUE TO MONITOR.
--- NOTE | 2018-10-28 | NUR ---
PT REPOSITIONED IN BED PER REQUEST. ELEVATED PT LEFT ARM WITH PILLOWS PER REQUEST, TO HELP WITH THE SWELLING IN THE LEFT ARM. NO SIGNS OR SYMPTOMS OF DISTRESS. CALL LIGHT WITHIN REACH. SAFETY PRECAUTIONS IN PLACE. WILL CONTINUE TO MONITOR.
[2018-10-28 00:05] VITALS: BP 107/55
--- NOTE | 2018-10-28 04:00 | NUR ---
PT RESTING IN RECLINER AT BEDSIDE. NO SIGNS OR SYMPTOMS OF DISTRESS. CALL LIGHT WITHIN REACH. TELE MONITOR IN PLACE. WILL CONTINUE TO MONITOR.
[2018-10-28 04:15] VITALS: BP 107/45
[2018-10-28 05:13] LABS: HEMATOCRIT 27.3 % (39.0-50.0); HEMOGLOBIN 8.2 g/dl (14.0-18.0); IMMATURE GRANULOCYTES 0.7 % (0.0-5.0); MEAN CELL VOLUME 94.8 fL CALC (80.0-100.0); MEAN CORPUSCULAR HGB 28.5 pG CALC (26.0-32.0); NEUT# 11.71 thou/uL (1.82-7.42); RED BLOOD COUNT 2.88 mill/uL (4.70-6.10); RED CELL DISTRI WIDTH 20.7 % (11.5-15.5)
[2018-10-28 05:20] LABS: ALBUMIN 3.3 g/dL (3.2-5.0); BILIRUBIN, TOTAL 1.4 mg/dL (0.0-1.4); CREATININE 1.8 mg/dL (0.7-1.3); MAGNESIUM 2.7 mg/dL (1.6-2.3); POTASSIUM 4.4 mmol/l (3.5-5.1); TOTAL PROTEIN 5.6 g/dL (6.3-8.2)
--- NOTE | 2018-10-28 06:05 | NUR ---
DR RODRIGUEZ CALL FOR CRITICAL LAB VALUE BUN 84, NO NEW ORDERS AT THIS TIME.
--- NOTE | 2018-10-28 07:02 | NUR ---
REPORT RECEIVED FROM JENNIFER. PT IS RESTING IN BED WITH NO S/S OF DISTRESS NOTED. CALL LIGHT IN REACH.
[2018-10-28 07:59] VITALS: BP 117/61
--- NOTE | 2018-10-28 08:00 | NUR ---
PT IS SITTING IN THE SIDE OF THE BED. ASESSMENT DONE. TELE IN PLACE. PT IS A&O X3. PT DENIES PAIN AT THIS TIME. LUNGS SOUND COARSE/WHEEZES. O2 AT 4L/M VIA NC. #24 RH THAT APPEARS HEALTHY. SAFETY PRECAUTIONS REINFORCED AND CALL LIGHT IN REACH.
[2018-10-28 11:23] VITALS: BP 108/56
--- NOTE | 2018-10-28 12:06 | NUR ---
ASISSTED PT TO THE BATHROOM. PT HAD A MODERATED BM. ASISSTED PT BACK IN BED. IN ROOM. PT DENIES ANY OTHER NEEDS AT THIS TIME. O2 4L/M VIA NC IN PLACE. CALL LIGHT IN REACH.
--- NOTE | 2018-10-28 13:25 | NUR ---
DR. MENDOZA AT BEDSIDE TO ASESS PT AND DISCUSS POC. IN ROOM. TOLD PT HAS STILL REFUSED CT. MD TOLD PT HE HAS TO HAVE THE CT DONE. PT STATED HE WILL TRY. TOLD PT LEFT ARM STILL SWOLLEN. MD STATED HE WILL ORDER ULTRASOUND. CALL LIGHT IN REACH.
--- NOTE | 2018-10-28 15:55 | NUR ---
PT BACK FROM US AND CT. PT STATED HE WAS ABLE TO GET HIS CT TEST DONE TO. PT STATED HE TOLERATED WELL. IN ROOM. CALL LIGHT IN REACH.
--- NOTE | 2018-10-28 19:00 | NUR ---
REPORT REVEIVED FROM PABLO. PT RESTING IN BED NO SIGNS OR SYMPTOMS OF DISTRESS. CALL LIGHT IN REACH. WILL CONTINUE TO MONITOR.
[2018-10-28 19:45] VITALS: BP 98/53
--- NOTE | 2018-10-28 20:00 | NUR ---
PT RESTING IN BED. ALERT AND ORIENTED. ASSESSMENT COMPLETED. RESPIRATIONS SHALLOW, O2 VIA NC @ 4L. LUNGS SOUND COARSE. PEDAL PULSES WEAK. TELE MONITOR IN PLACE. IV #24 RH, PATENT, APPEARS HEALTHY. SKIN INTACT. LEFT ARM SWOLLEN. TRACE EDEMA BILATERALLY IN LEGS. PT DENIES ANY PAIN OR DISCOMFORTS AT THIS TIME. CALL LIGHT WITHIN REACH. WILL CONTINUE TO MONITOR.
--- NOTE | 2018-10-29 | NUR ---
PT RESTING IN BED. TELE MONITOR IN PLACE. ZOSYN HUNG AND INFUSING THROUGH IV #24 R HAND, PT TOLERATING WELL. CALL LIGHT WITHIN REACH. WILL CONTINUE TO MONITOR.
[2018-10-29 00:05] VITALS: BP 93/57
--- NOTE | 2018-10-29 04:00 | NUR ---
PT RESTING IN BED. NO SIGNS OR SYMPTOMS OF DISTRESS. PT DENIES ANY NEEDS AT THIS TIME. CALL LIGHT WITHIN REACH. WILL CONTINUE TO MONITOR.
[2018-10-29 04:25] VITALS: BP 104/54
[2018-10-29 05:42] LABS: HEMATOCRIT 26.9 % (39.0-50.0); IMMATURE GRANULOCYTES 0.7 % (0.0-5.0); MEAN CELL VOLUME 95.1 fL CALC (80.0-100.0); MEAN CORPUSCULAR HGB 28.3 pG CALC (26.0-32.0); MEAN CORPUSCULAR HGB CONC 29.7 g/L CALC (32.0-36.0); NEUT# 11.06 thou/uL (1.82-7.42); RED BLOOD COUNT 2.83 mill/uL (4.70-6.10); RED CELL DISTRI WIDTH 20.6 % (11.5-15.5)
[2018-10-29 06:07] LABS: ALBUMIN 3.1 g/dL (3.2-5.0); BILIRUBIN, TOTAL 1.4 mg/dL (0.0-1.4); CREATININE 1.7 mg/dL (0.7-1.3); MAGNESIUM 2.7 mg/dL (1.6-2.3); POTASSIUM 4.4 mmol/l (3.5-5.1); TOTAL PROTEIN 5.3 g/dL (6.3-8.2)
--- NOTE | 2018-10-29 07:15 | NUR ---
PT REPORT RECIEVED FROM TAYA FARRELL. PT SLEEPING. NO S/S OF DISTRESS. CALL LIGHT IN REACH
[2018-10-29 09:08] VITALS: BP 117/50
--- NOTE | 2018-10-29 09:08 | NUR ---
PT A/O X3. SPEECH IS CLEAR. NONPRODUCTIVE COUGH NOTED. RESP LABORED. LUNG SOUNDS COARSE. PT HAS RESTING/EXERTIONAL SOB. O2@ 4L, HUMIDIFIED. BOWEL SOUNDS ACTIVE X4. STRONG RADIAL PULSES. # 24 RH SL. FLUSHED AND PATENT. SITE HEALTHY. WEAK PEDAL PULSES. +3 EDEMA TO LT ARM, +2 EDEMA TO RT ARM, +1 EDEMA TO BLE. ENCOURAGED ELEVATION WHEN RESTING AND WHEN OOB. PT DENIES ANY PAIN OR NEEDS. POC DISCUSSED. SAFETY PRECAUTIONS IN PLACE. CALL LIGHT IN REACH. WILL CONTINUE TO MONITOR.
[2018-10-29 11:24] VITALS: BP 133/40
--- NOTE | 2018-10-29 12:18 | NUR ---
PT SITTING IN BED. AT BEDSIDE. STATES PT IS HAVING DIFFICULTY BREATHING. HOB ELEVATED, CPAP MASK APPLIED. MD NOTIFED. WILL CONTINUE TO MONITOR.
[2018-10-29 14:38] VITALS: BP 109/61
--- NOTE | 2018-10-29 15:50 | NUR ---
REPORT GIVEN TO TAYA CASAREZ AT [facility]
== END 2018-10-29 15:48 | DRG 177 ==
LOC: EDSTATUS 13:12 → MS2 15:44
PROVIDERS: Internal Medicine; Nurse Practitioner Family; ADMIT Internal Medicine; ATTEND Internal Medicine Nephrology
PROC: 5A09357 Assistance with Respiratory Ventilation, Less than 24 Consecutive Hours, Continuous Positive Airway Pressure (ICD-10-PCS; principal; 2018-10-22)
DX: J15.1 Pneumonia due to Pseudomonas (principal); I50.23 Acute on chronic systolic (congestive) heart failure; J44.1 Chronic obstructive pulmonary disease with (acute) exacerbation; I13.0 Hypertensive heart and chronic kidney disease with heart failure and stage 1 through stage 4 chronic kidney disease, or unspecified chronic kidney disease; J44.0 Chronic obstructive pulmonary disease with (acute) lower respiratory infection; N18.3 Chronic kidney disease, stage 3 (moderate); I25.10 Atherosclerotic heart disease of native coronary artery without angina pectoris; M34.9 Systemic sclerosis, unspecified; I48.91 Unspecified atrial fibrillation; E03.9 Hypothyroidism, unspecified; E78.5 Hyperlipidemia, unspecified; D63.1 Anemia in chronic kidney disease; G47.33 Obstructive sleep apnea (adult) (pediatric); R79.89 Other specified abnormal findings of blood chemistry; Z95.1 Presence of aortocoronary bypass graft; Z95.5 Presence of coronary angioplasty implant and graft; Z87.891 Personal history of nicotine dependence; Z79.899 Other long term (current) drug therapy; Z95.810 Presence of automatic (implantable) cardiac defibrillator
CPT/HCPCS: G0378; J0713